=== PATIENT | male | born 2000 | race Caucasian/White ===

== ENCOUNTER 2020-10-22 17:53 | Emergency (ER) | payer OTHER ==
[~2020-10-22] VITALS: Ht 188 cm; Wt 119.3 kg
[2020-10-22 18:13] VITALS: BP 128/93
--- NOTE | 2020-10-22 18:37 | PHYS DOC ---
Past History Past Surgical History: No Surgical History Adult General Chief Complaint Chief Complaint: FLANK PAIN HPI HPI Patient is a 20-year-old male, who presents in police custody from the assisted for a chief complaint of right sided flank pain that started earlier in the day, 6 out of 10, sharp in nature with some radiation towards the groin. States he has had something similar in the past as he has had a couple episodes of kidney stones. States that he noticed today to that he had some urinary frequency and discomfort when urinating. Denies any recent traumas, travels, fevers, chest pain, shortness of breath, nausea, vomiting, hematuria, diarrhea. Denies any genital lesions, history of STIs, penile discharge, scrotal swelling or pain. States he had not had any sort of sexual intercourse in the last 2 years since he has been in assisted. Review of Systems Review of Systems Review of systems otherwise unremarkable except noted in HPI Current Medications Current Medications Current Medications Medications (Trade) Dose Ordered Sig/Anjali Start Time Stop Time Status Last Admin Dose Admin Ketorolac Tromethamine (Toradol 30mg Vial) 30 mg 1X ONCE 10/22/20 18:45 10/22/20 18:46 Allergies Allergies Allergies Coded Allergies Type Severity Reaction Last Updated Verified No Known Drug Allergies 10/22/20 No Physical Exam Physical Exam Constitutional: Well developed, well nourished, no acute distress, non-toxic appearance. [] HENT: Normocephalic, atraumatic, oropharynx moist, no oral exudates, nose normal. [] Eyes: conjunctiva normal, no discharge. [] Neck: Normal range of motion, no tenderness, supple, no stridor. [] Cardiovascular:Heart rate regular rhythm, no murmur [] Lungs & Thorax: Bilateral breath sounds clear to auscultation [] Abdomen: Bowel sounds normal, soft, no tenderness, no masses, no pulsatile masses. [] Skin: Warm, dry, no erythema, no rash. [] Back: No tenderness, no CVA tenderness. [] Extremities: No tenderness, no cyanosis, no clubbing, ROM intact, no edema. [] Neurologic: Alert and oriented X 3, no focal deficits noted. [] Psychologic: Affect normal, judgement normal, mood normal. [] Current Patient Data Vital Signs Vital Signs Date Time Temp Pulse Resp B/P (MAP) Pulse Ox O2 Delivery O2 Flow Rate FiO2 9/4/21 18:13 98.8 92 20 128/93 97 Room Air EKG EKG [] Radiology/Procedures Radiology/Procedures [] FINDINGS: Heart size is normal. No pericardial effusion. Visualized lung bases are clear. No pleural effusion. Evaluation of solid organs is limited secondary to noncontrast technique. Mild diffuse hepatic steatosis. Spleen, pancreas, gallbladder and adrenals are unremarkable. No perinephric inflammation or hydronephrosis. No renal or ureteral calculi are identified. Bladder is partially distended and not well evaluated. Prostate is not enlarged. Large and small bowel are unremarkable. Appendix is normal. No free intra-abd ominal air or fluid. No obstruction. Abdominal aorta has a normal course and caliber. No enlarged intra-abdominal lymph nodes are identified. No suspicious osseous lesions or acute fractures. 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 IMPRESSION: 1. No renal or ureteral calculi. No evidence for obstructive uropathy. 2. Mild diffuse hepatic steatosis. Heart Score C/O Chest Pain: No Risk Factors: Risk Factors: DM, Current or recent (<one month) smoker, HTN, HLP, family history of CAD, obesity. Risk Scores: Risk Factors: DM, Current or recent (<one month) smoker, HTN, HLP, family history of CAD, obesity. Course & Med Decision Making Course & Med Decision Making Patient is a 20-year-old male who presents with right-sided flank pain and histo ry of renal stones Signs not concerning. Physical exam noted above. Given pain medicine. Given nausea medicine. Laboratory analysis not concerning. CT normal outside of hepatic steatosis. On reassessment patient feeling better with normal vital signs. Feels safe to discharge back to assisted. Discussed all findings with patient. Advised on symptom management. Advised on diet. Advised to follow-up first thing with primary care physician to update on ED visit and diagnosis. Gave return precautions to the ED. Patient grateful, verbalized understanding agree with plan of discharge. [] Dragon Disclaimer Dragon Disclaimer This electronic medical record was generated, in whole or in part, using a voice recognition dictation system. Departure Departure: Impression: Primary Impression: Flank pain Additional Impression: Hepatic steatosis Disposition: HOME / SELF CARE / HOMELESS Condition: GOOD Referrals: PCP,NO (PCP) HARJEET IRWIN MD Patient Instructions: Fat and Cholesterol Control Diet, Hepatomegaly, Liver Disease Diet Additional Instructions: Thank you for coming into the emergency department tonight and allowing us to take care of you. Please read all of the attached information carefully to go back over the things we discussed. Please adjust your lifestyle, and diet/nutrition as discussed and in your education to try and control your symptoms and hopefully reverse your fatty liver. Please do not drink alcohol as this can worsen your symptoms. Please follow-up as soon as you can with your primary care physician to update on your ED visit and set up a follow-up. Please come back to the ED with new or concerning symptoms as discussed. Problem Qualifiers ZEESHAN KAUFFMAN MD Oct 22, 2020 18:37
[2020-10-22] MEDS ORDERED: KETOROLAC 30 MG/ML VIAL. IM ONE (18:45)
[2020-10-22 18:56] LABS: CALCIUM 8.8 mg/dL (8.5-10.1); CREATININE 0.9 mg/dL (0.7-1.3); GFR 106.5; POTASSIUM 3.8 mmol/L (3.5-5.1)
[2020-10-22] MEDS ORDERED: KETOROLAC 30 MG/ML VIAL. IVP ONE (19:00)
[2020-10-22 19:02] LABS: BASO # 0.1 x10^3/uL (0.0-0.2); BASO % 1 % (0-3); EOS # 0.1 x10^3/uL (0.0-0.7); EOS % 1 % (0-3); HEMATOCRIT 43.9 % (39.0-53.0); HEMOGLOBIN 15.1 g/dL (13.0-17.5); LYMPH # 2.6 x10^3/uL (1.0-4.8); LYMPH % 37 % (24-48); MEAN CORPUSCULAR HEMOGLOBIN 31 pg (25-35); MEAN CORPUSCULAR HGB CONC 34 g/dL (31-37); MEAN CORPUSCULAR VOLUME 89 fL (79-100); MONO # 0.6 x10^3/uL (0.0-1.1); MONO % 9 % (0-9); NEUT # 3.7 x10^3uL (1.8-7.7); NEUT % 52 % (31-73); PLATELET COUNT 203 x10^3/uL (140-400); RED BLOOD COUNT 4.91 x10^6/uL (4.30-5.70); RED CELL DISTRIBUTION WIDTH 12.8 % (11.5-14.5); WHITE BLOOD COUNT 7.2 x10^3/uL (4.0-11.0)
--- NOTE | 2020-10-22 19:12 | RAD ---
Exam: CT of abdomen and pelvis without contrast INDICATION: Right flank pain, history of stone TECHNIQUE: Sequential axial images through the abdomen and pelvis obtained without IV contrast. Sagit anastasiia and coronal reformatted images were reconstructed from the axial data and reviewed. Exposure: One or more of the following in the visualized dose reduction techniques were utilized for this examination: 1. Automated exposure control 2. Adjustment of the MA and/or KV according to patient size 3. Use of iterative of reconstructive technique Comparisons: None FINDINGS: Heart size is normal. No pericardial effusion. Visualized lung bases are clear. No pleural effusion. Evaluation of solid organs is limited secondary to noncontrast technique. Mild diffuse hepatic steatosis. Spleen, pancreas, gallbladder and adrenals are unremarkable. No perinephric inflammation or hydronephrosis. No renal or ureteral calculi are identified. Bladder is partially distended and not well evaluated. Prostate is not enlarged. Large and small bowel are unremarkable. Appendix is normal. No free intra-abdominal air or fluid. No obstruction. Abdominal aorta has a normal course and caliber. No enlarged intra-abdominal lymph nodes are identified. No suspicious osseous lesions or acute fractures. 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 IMPRESSION: 1. No renal or ureteral calculi. No evidence for obstructive uropathy. 2. Mild diffuse hepatic steatosis. Electronically signed by: Brennen Qureshi MD (10/22/2020 7:10 PM) [facility]
[2020-10-22 19:13] LABS: BACTERIA,URINE 0 /HPF (0-FEW); BILIRUBIN,URINE NEG (NEG); CLARITY,URINE CLEAR; COLOR,URINE YELLOW; GLUCOSE,URINE NEG (NEG); NITRITE,URINE NEG (NEG); RBC,URINE OCC /HPF (0-2); UROBILINOGEN,URINE 0.2 mg/dL (0.2 mg/dL); WBC,URINE OCC /HPF (0-4)
[2020-10-22] MEDS ORDERED: ONDANSETRON ODT 4 MG TAB.RAPDIS PO ONE (19:30)
== END 2020-10-22 19:25 | disposition home or self-care (01) ==
LOC: ER 17:53
DX: K76.0 Fatty (change of) liver, not elsewhere classified (principal); Z87.442 Personal history of urinary calculi
CPT/HCPCS: 36415; 74176; 80048; 81001; 85025; 96374; 99284; J1885

== ENCOUNTER 2021-06-27 19:57 | Emergency (ER) | payer OTHER ==
[~2021-06-27] VITALS: Ht 180.3 cm; Wt 124.4 kg
--- NOTE | 2021-06-27 21:28 | PHYS DOC ---
Past History Past Surgical History: No Surgical History (LETICIA BARTLETT APRN) Alcohol Use: None (LETICIA BARTLETT APRN) General Adult EDM: Chief Complaint: FOREIGN BODY HPI: HPI: Patient is a 21-year-old male who presents with deodorant bottle in his rectum. Patient states "I just decided to stick it in my butt". Incident occurred about 4 hours ago. Denies pain. Patient is currently in custody and brought in by police. History of depression and anxiety. (LETICIA BARTLETT APRN) Review of Systems: Review of Systems: ROS At least 10 ROS systems have been reviewed and are negative except as documented in the HPI. General: Negative except as outlined in HPI above. Skin: Negative except as outlined in HPI above. HEENT: Negative except as outlined in HPI above. Neck: Negative except as outlined in HPI above. Respiratory: Negative except as outlined in HPI above.. Cardiovascular: Negative except as outlined in HPI above. Abdomen: Negative except as outlined in HPI above. : Negative except as outlined in HPI above. Back/MSK: Negative except as outlined in HPI above. Neuro: Negative except as outlined in HPI above. Psych: Negative except as outlined in HPI above. (LETICIA BARTLETT APRN) Current Medications: Current Meds: Current Medications Medications (Trade) Dose Ordered Sig/Anjali Start Time Stop Time Status Last Admin Dose Admin Sodium Chloride 1,000 ml @ 1,000 mls/hr 1X ONCE 06/27/21 21:15 06/27/21 22:14 UNV (LETICIA BARTLETT APRN) Allergies: Allergies: Allergies Coded Allergies Type Severity Reaction Last Updated Verified No Known Drug Allergies 10/22/20 No (LETICIA BARTLETT APRN) Physical Exam: PE: Constitutional: Well developed, well nourished, no acute distress, non-toxic appearance. [] HENT: Normocephalic, atraumatic, bilateral external ears normal, oropharynx moist, no oral exudates, nose normal. [] Eyes: PERRLA, EOMI, conjunctiva normal, no discharge. [] Neck: Normal range of motion, no tenderness, supple, no stridor. [] Cardiovascular:Heart rate regular rhythm, no murmur [] Lungs & Thorax: Bilateral breath sounds clear to auscultation [] Abdomen: Bowel sounds normal, soft, no tenderness Skin: Warm, dry, no erythema, no rash. [] Back: No tenderness, no CVA tenderness. [] Extremities: No tenderness, no cyanosis, no clubbing, ROM intact, no edema. [] Neurologic: Alert and oriented X 3, normal motor function, normal sensory function, no focal deficits noted. [] Psychologic: Affect normal, judgement normal, mood normal. [] (LETICIA BARTLETT APRN) PE: My exam rectum shows a small tear. No gross blood. Cannot feel end of can with digital exam. (GISELLA COUGHLIN MD) Current Patient Data: Vital Signs: Vital Signs Date Time Temp Pulse Resp B/P (MAP) Pulse Ox O2 Delivery O2 Flow Rate FiO2 06/27/21 20:19 98.6 104 20 160/109 (126) 98 Room Air (LETICIA BARTLETT APRN) EKG: EKG: [] (LETICIA BARTLETT APRN) EKG: My interpretation EKG shows a sinus rhythm at 97 bpm. No acute morphology. Does have some bimodal P waves. Time of EKG is 2331 hrs. (GISELLA COUGHLIN MD) Radiology/Procedures: Radiology/Procedures: [] (LETICIA BARTLETT APRN) Heart Score: C/O Chest Pain: No Risk Factors: Risk Factors: DM, Current or recent (<one month) smoker, HTN, HLP, family history of CAD, obesity. Risk Scores: Score 0 - 3: 2.5% MACE over next 6 weeks - Discharge Home Score 4 - 6: 20.3% MACE over next 6 weeks - Admit for Clinical Observation Score 7 - 10: 72.7% MACE over next 6 weeks - Early Invasive Strategies (LETICIA BARTLETT APRN) Course & Med Decision Making: Course & Med Decision Making Pertinent Labs and Imaging studies reviewed. (See chart for details) [] 21-year-old male presents with deodorant bottle in his rectum. Acute abdomen ordered. Work-up included CBC, CMP. Patient given NS bolus. Unable to visualize foreign body on physical exam. Patient report given to Dr. Coughlin. At 2204. (LETICIA BARTLETT APRN) Course & Med Decision Making See Bartlett Chart for details. Discussed presentation, testing and tx. plan with Dr. Thurman and Dr. Enciso. Transfer to [facility]. Keep NPO> Impression: 1. Retained deodorant can in rectal and lower sigmoid area ( Pt. reports he was self sexual stimulating with the can) 2. Small rectal tear 3. Mild elevation AST 42, ALT 113 (GISELLA COUGHLIN MD) Dragon Disclaimer: Dragluther Disclaimer: This electronic medical record was generated, in whole or in part, using a voice recognition dictation system. (LETICIA BARTLETT APRN) Departure Departure: Referrals: PCP,NO (PCP) Arpan Disclaimer This chart was dictated in whole or in part using Voice Recognition software in a busy, high-work load, and often noisy Emergency Department environment. It may contain unintended and wholly unrecognized errors or omissions. (GISELLA COUGHLIN MD) LETICIA BARTLETT APRN June 27, 2021 21:28 GISELLA COUHGLIN MD June 27, 2021 22:33
[2021-06-27] MEDS ORDERED: IV NORMAL SALINE 1,000ML 1,000 ML IV ONE (22:00)
[2021-06-27 22:02] LABS: BASO # 0.1 x10^3/uL (0.0-0.2); BASO % 1 % (0-3); EOS % 0 % (0-3); HEMATOCRIT 44.5 % (39.0-53.0); HEMOGLOBIN 15.1 g/dL (13.0-17.5); LYMPH # 2.4 x10^3/uL (1.0-4.8); LYMPH % 26 % (24-48); MEAN CORPUSCULAR HEMOGLOBIN 31 pg (25-35); MEAN CORPUSCULAR HGB CONC 34 g/dL (31-37); MEAN CORPUSCULAR VOLUME 90 fL (79-100); MONO # 0.8 x10^3/uL (0.0-1.1); MONO % 8 % (0-9); NEUT # 6.1 x10^3uL (1.8-7.7); NEUT % 65 % (31-73); PLATELET COUNT 224 x10^3/uL (140-400); RED BLOOD COUNT 4.96 x10^6/uL (4.30-5.70); RED CELL DISTRIBUTION WIDTH 13.7 % (11.5-14.5); WHITE BLOOD COUNT 9.4 x10^3/uL (4.0-11.0)
[2021-06-27 22:23] LABS: CALCIUM 9.5 mg/dL (8.5-10.1); GFR 93.4; POTASSIUM 4.2 mmol/L (3.5-5.1)
[2021-06-27 22:28] LABS: ALBUMIN/GLOBULIN RATIO 1.2 (1.0-1.7); TOTAL BILIRUBIN 0.3 mg/dL (0.2-1.0); TOTAL PROTEIN 7.3 g/dL (6.4-8.2)
[2021-06-27 22:49] LABS: AMYLASE 72 U/L (25-115); LIPASE 72 U/L (73-393)
--- NOTE | 2021-06-27 23:12 | RAD ---
EXAM: Frontal view of the chest, AP views of the abdomen in upright and supine positions. CLINICAL INDICATION: Reason: FOREIGN BODY in rectum, possibly deodorant container, pain / Spl. Instru ctions: / History: COMPARISON: None. FINDINGS and IMPRESSION: The heart is not enlarged. Mediastinal and hilar contours are normal. No focal parenchymal airspace o pacity. No pleural effusion or pneumothorax. No abnormal small or large bowel dilatation. Moderate colonic stool content. Cylindrical foreign bod y is seen in the pelvis, possibly within the rectum. No abnormal soft tissue mass effect. No suspici ous calcifications are seen. No free intraperitoneal gas. Electronically signed by: Aakash Maria MD (06/27/2021 11:10 PM) [facility]
[2021-06-28 00:08] VITALS: BP 146/87
--- NOTE | 2021-06-28 06:27 | EKG ---
[address] [address] Test Date: 2021-06-27 Test Time: 23:31:53 Pat Name: QASIM COLEMAN Department: Room: Gender: M Electronic Systems Technician: GRACIA : 2000 Requested By: GISELLA MOFFETT Order Number: [id number] Reading MD: Josef Castro Measurements Intervals [place] Rate: 97 P: 27 VT: 166 QRS: 22 QRSD: 82 T: 32 QT: 326 QTc: 418 Interpretive Statements SINUS RHYTHM LEFT ATRIAL ABNORMALITY ABNORMAL ECG RI6.02 No previous ECG available for comparison Electronically Signed On 06-28-2021 17:07:13 CDT by Josef Castro
== END 2021-06-28 01:12 | disposition short-term general hospital (02) ==
LOC: ER 19:57
DX: T18.5XXA Foreign body in anus and rectum, initial encounter (principal); S36.63XA Laceration of rectum, initial encounter; R79.89 Other specified abnormal findings of blood chemistry; Z20.822 Contact with and (suspected) exposure to COVID-19; X58.XXXA Exposure to other specified factors, initial encounter; Y93.89 Activity, other specified; Y92.89 Other specified places as the place of occurrence of the external cause; Y99.8 Other external cause status
CPT/HCPCS: 36415; 74022; 80053; 82150; 83690; 85025; 93005; 96360; 96361; 99285; C9803; J7030; U0003

== ENCOUNTER 2021-07-09 20:24 | Emergency (ER) | payer OTHER ==
[~2021-07-09] VITALS: Ht 180.3 cm; Wt 124.4 kg
--- NOTE | 2021-07-09 20:36 | PHYS DOC ---
Past History Past Surgical History: No Surgical History (LEONOR RAYMUNDO APRN) Alcohol Use: None (LEONOR RAYMUNDO APRN) General Adult EDM: Chief Complaint: SEIZURE HPI: HPI: Patient is a 21-year-old male who presents to the emergency department for seizure-like activity. Around 1930 this evening patient had "twitching" that was witnessed by police that lasted approximately 4 minutes. Following seizure-like activity patient did have postictal period. Patient does have a history of seizures and his last seizure was 1 year ago. Per nursing staff patient does have a history of schizophrenia and they report that he has not been taking his Abilify and that is why [facility] at the [facility] believe he did have a seizure. He states that he does not take any medications for seizures. He denies any fall, drug use, alcohol use, tongue laceration, nausea, vomiting, pain, chest pain, shortness of breath. (LEONOR RAYMUNDO APRN) Review of Systems: Review of Systems: HENT: See HPI Respiratory: See HPI Cardiovascular: See HPI GI: See HPI Musculoskeletal: See HPI Neurologic: See HPI (LEONOR RAYMUNDO APRN) Current Medications: Current Meds: Current Medications Medications (Trade) Dose Ordered Sig/Anjali Start Time Stop Time Status Last Admin Dose Admin Sodium Chloride 1,000 ml @ 1,000 mls/hr 1X ONCE 07/09/21 20:45 07/09/21 21:44 UNV (LEONOR RAYMUNDO APRN) Allergies: Allergies: Allergies Coded Allergies Type Severity Reaction Last Updated Verified No Known Drug Allergies 10/22/20 No (LEONOR RAYMUNDO APRN) Physical Exam: PE: Constitutional: Well developed, well nourished, no acute distress, non-toxic appearance. [] HENT: Normocephalic, atraumatic, bilateral external ears normal, oropharynx [address], no oral exudates, nose normal. [] Eyes: PERRL, 5 mm bilaterally, no nystagmus, EOMI, conjunctiva normal, no discharge. [] Neck: Normal range of motion, no tenderness, supple, no stridor. [] Cardiovascular:Heart rate regular rhythm, no murmur [] Lungs & Thorax: Bilateral breath sounds clear to auscultation [] Abdomen: Bowel sounds normal, soft, no tenderness, no masses, no pulsatile masses. [] Skin: Warm, dry, no erythema, no rash. [] Back: No tenderness, lotion Extremities: No tenderness, no cyanosis, no clubbing, ROM intact, no edema. [] Neurologic: Alert and oriented X 3, normal motor function, normal sensory function, no focal deficits noted, no pronator drift, equal plasterer rough strengths, pa tient moving all 4 extremities with. [] Psychologic: Affect normal, judgement normal, mood normal. [] (LEONOR RAYMUNDO APRN) EKG: EKG: [] (LEONOR RAYMUNDO APRN) Radiology/Procedures: Radiology/Procedures: []REASON: seizure PROCEDURE: CT HEAD AND CERVICAL SPINE WO Exam Date: 07/09/2021 9:[address] HEAD AND C-SPINE WO Indication: Reason: seizure / Spl. Instructions: / History: . One or more of the following dose reduction techniques were utilized: *Automated exposure control (AEC) *Adjustment of mA and/or kV according to patient size *Use of iterative reconstruction technique *CT scan done according to ALARA, or ALA/IMAGE GENTLY EXAMINATION: CT OF THE HEAD WITHOUT CONTRAST INDICATION: Trauma, head injury, headache; TECHNIQUE: Noncontrast helical axial CT images of the head were obtained. FINDINGS: The ventricles and sulci are normal for the patient's stated age. There is no evidence of acute intracranial hemorrhage, extra-axial collection, mass effect, midline shift, or acute territorial infarct. No lesion of the skull base or the calvarium is seen. The visualized paranasal sinuses, mastoid air cells, and orbits are normal in appearance. IMPRESSION: No evidence for acute intracranial abnormality. EXAMINATION: CT OF THE CERVICAL SPINE WITHOUT CONTRAST Clinical Indication: Cervical spine pain after trauma Technique: Thin cut helical axial CT images through the cervical spine were obtained without contrast on a multi-detector CT scanner. Source data was then reconstructed into sagittal and coronal planes. Findings: Alignment is maintained without spondylolisthesis. Vertebral body heights are maintained without acute fracture. Disc spaces are preserved. No significant prevertebral soft tissue swelling is demonstrated. No severe osseous central canal stenosis is seen. Groundglass opacities in the lung apices bilaterally which are nonspecific but may represent subsegmental atelectasis. Infection is not excluded. Impression: No evidence of acute cervical spine fracture or subluxation. Groundglass opacities in the lung apices are nonspecific but represent subsegmental atelectasis, though infection is not excluded. Electronically signed by: Hedy Shah MD (07/09/2021 9:46 PM) [id number] DICTATED AND SIGNED BY: HEYD SHAH MD DATE: 07/09/212139 CC: EMERGENCY,DEPARTMENT; LEONOR RAYMUNDO APRN; PCP,NO ~ (LEONOR RAYMUNDO APRN) Heart Score: C/O Chest Pain: No Risk Factors: Risk Factors: DM, Current or recent (<one month) smoker, HTN, HLP, family history of CAD, obesity. Risk Scores: Score 0 - 3: 2.5% MACE over next 6 weeks - Discharge Home Score 4 - 6: 20.3% MACE over next 6 weeks - Admit for Clinical Observation Score 7 - 10: 72.7% MACE over next 6 weeks - Early Invasive Strategies (LEONOR RAYMUNDO APRN) Course & Med Decision Making: Course & Med Decision Making Pertinent Labs and Imaging studies reviewed. (See chart for details) [] Patient presents to the emergency department for seizure-like activity. Patient does have a history of seizure 1 year ago. Patient does not take any medications for his seizures. Work-up in the ER consisted of blood work, EKG and CT imaging of head. Patient treated with IV fluids. Patient CT imaging of head shows no acute findings. Lab work is pending at this time. I discussed patient's case with Dr. Kauffman and he will assume patient's care at this time due to shift change 2206. (LEONOR RAYMUNDO APRN) Course & Med Decision Making Patient care handed off to me at checkout, patient is a 21-year-old male with schizophrenia who presents with police escort as he comes from the psychiatric [facility] in the alf for some twitching that he had earlier on. States that it was just a few minutes of some arm twitching but did not have a generalized tonic-clonic seizure. Does not sound like from the history patient had any kind of seizure and has only had 1 other similar episode to this about a year ago and has no history of seizures. While in the emergency department patient awake, alert and oriented in no acute distress. Able to take p.o. Laboratory analysis not concerning. CT of the head nonconcerning. Vital signs nonconcerning. Patient states he does not like taking medications for schizophrenia so he does not take them. Offered medications here in the emergency department for his schizophrenia which he declined. Advised to have discussions with the alf physician staff about alternatives and therapy as well. Gave strict return precautions to the ED. Patient grateful, verbalized understanding agree with plan of discharge. (ZEESHAN KAUFFMAN MD) Dragon Disclaimer: Dragon Disclaimer: This electronic medical record was generated, in whole or in part, using a voice recognition dictation system. (LEONOR RAYMUNDO APRN) Departure Departure: Impression: Primary Impression: Schizophrenia Disposition: HOME / SELF CARE / HOMELESS Condition: STABLE Referrals: PCP,YUKO (PCP) HARJEET IRWIN MD Patient Instructions: Schizophrenia Additional Instructions: Thank you for coming into the emergency department tonight and allowing us to take care of you. Please read the attached information carefully to go over things we discussed. Hurt labs and imaging were reassuring. You were offered medications here in the emergency department but you declined stating that she did not want to take any medications. However it would be of a benefit and be helpful to manage her symptoms being on some type of medication at least for short amount of time to help you with any symptoms that you are having. Please talk about this with your facility physician or psychiatrist at least in the short-term to see how you tolerate these medications. Please come back to the ED with new or concerning symptoms as discussed. LEONOR RAYMUNDO APRN July 09, 2021 20:36 ZEESHAN KAUFFMAN MD July 09, 2021 23:35
--- NOTE | 2021-07-09 21:48 | RAD ---
Exam Date: 07/09/2021 9:[address] HEAD AND C-SPINE WO Indication: Reason: seizure / Spl. Instructions: / History: . One or more of the following dose reduction techniques were utilized: *Automated exposure control (AEC) *Adjustment of mA and/or kV according to patient size *Use of iterative reconstruction technique *CT scan done according to ALARA, or ALARA/IMAGE GENTLY EXAMINATION: CT OF THE HEAD WITHOUT CONTRAST INDICATION: Trauma, head injury, headache; TECHNIQUE: Noncontrast helical axial CT images of the head were obtained. FINDINGS: The ventricles and sulci are normal for the patient's stated age. There is no evidence of acute int racranial hemorrhage, extra-axial collection, mass effect, midline shift, or acute territorial infarc t. No lesion of the skull base or the calvarium is seen. The visualized paranasal sinuses, mastoid ai r cells, and orbits are normal in appearance. IMPRESSION: No evidence for acute intracranial abnormality. EXAMINATION: CT OF THE CERVICAL SPINE WITHOUT CONTRAST Clinical Indication: Cervical spine pain after trauma Technique: Thin cut helical axial CT images through the cervical spine were obtained without contrast on a multi-detector CT scanner. Source data was then reconstructed into sagittal and coronal planes. Findings: Alignment is maintained without spondylolisthesis. Vertebral body heights are maintained without acute fracture. Disc spaces are preserved. No signific ant prevertebral soft tissue swelling is demonstrated. No severe osseous central canal stenosis is se en. Groundglass opacities in the lung apices bilaterally which are nonspecific but may represent sub segmental atelectasis. Infection is not excluded. Impression: No evidence of acute cervical spine fracture or subluxation. Groundglass opacities in the lung apices are nonspecific but represent subsegmental atelectasis, thou gh infection is not excluded. Electronically signed by: Darrell Shah MD (07/09/2021 9:46 PM) [id number]
[2021-07-09] MEDS: IV NORMAL SALINE 1,000ML 1,000 ML IV ONE (22:00)
[2021-07-09 22:22] LABS: BASO # 0.1 x10^3/uL (0.0-0.2); BASO % 1 % (0-3); EOS % 1 % (0-3); HEMATOCRIT 42.3 % (39.0-53.0); HEMOGLOBIN 14.2 g/dL (13.0-17.5); LYMPH # 3.7 x10^3/uL (1.0-4.8); LYMPH % 40 % (24-48); MEAN CORPUSCULAR HEMOGLOBIN 30 pg (25-35); MEAN CORPUSCULAR HGB CONC 34 g/dL (31-37); MEAN CORPUSCULAR VOLUME 90 fL (79-100); MONO # 0.9 x10^3/uL (0.0-1.1); MONO % 9 % (0-9); NEUT # 4.6 x10^3uL (1.8-7.7); NEUT % 50 % (31-73); PLATELET COUNT 232 x10^3/uL (140-400); RED BLOOD COUNT 4.68 x10^6/uL (4.30-5.70); RED CELL DISTRIBUTION WIDTH 13.9 % (11.5-14.5); WHITE BLOOD COUNT 9.3 x10^3/uL (4.0-11.0)
[2021-07-09 22:31] LABS: CALCIUM 9.6 mg/dL (8.5-10.1); CREATININE 1.1 mg/dL (0.7-1.3); GFR 83.7
[2021-07-09 22:37] LABS: ALBUMIN/GLOBULIN RATIO 1.2 (1.0-1.7); TOTAL BILIRUBIN 0.4 mg/dL (0.2-1.0); TOTAL PROTEIN 7.3 g/dL (6.4-8.2)
[2021-07-09 23:33] VITALS: BP 137/70
== END 2021-07-10 00:11 | disposition home or self-care (01) ==
LOC: ER 20:24
DX: F20.9 Schizophrenia, unspecified (principal); R56.9 Unspecified convulsions
CPT/HCPCS: 36415; 70450; 72125; 80053; 83735; 85025; 93005; 96360; 99285; J7030